=== PATIENT | female | born 1990 | race Hispanic/Latino ===

== ENCOUNTER 2018-02-21 09:20 | Inpatient (IN) | payer OTHER ==
[~2018-02-21] VITALS: Ht 160 cm; Wt 96.6 kg
[2018-02-21] MEDS ORDERED: PRENATAL TABLE1 EAC2 PO (11:35)
[2018-02-21] MEDS ORDERED: DELZICOL400 M1 PO (11:37)
[2018-02-21 11:40] LABS: ABSOLUTE BASOPHIL COUNT 0 /CUMM (0.0-0.2); ABSOLUTE EOSINOPHIL COUNT 0.1 /CUMM (0.0-0.7); ABSOLUTE GRANULOCYTE CT 9.3 /CUMM (1.4-6.5); ABSOLUTE LYMPH COUNT 2.5 /CUMM (1.2-3.4); ABSOLUTE MONOCYTE COUNT 0.6 /CUMM (0.10-0.60); BASOPHIL % 0.3 % (0.0-2.0); EOSINOPHIL % 0.7 % (0-5); GRANULOCYTE % 74.3 % (42.2-75.2); HEMATOCRIT 38.3 % (37-47); MEAN CORPUSCULAR HGB 29.3 PG (27.0-31.0); MEAN CORPUSCULAR HGB CONC 34.2 G/DL (33.0-37.0); MEAN CORPUSCULAR VOLUME 85.5 FL (81.0-99.0); MEAN PLATELET VOLUME 9.2 FL (7.4-10.4); PLATELET COUNT 225 /CUMM (130-400); RBC DISTRIBUTION WIDTH 14.9 % (11.5-14.5); RED BLOOD CELL CT 4.47 /CUMM (4.20-5.40); WHITE BLOOD CELL COUNT 12.5 /CUMM (4.8-10.8)
--- NOTE | 2018-02-21 12:52 | History & Physical ---
General Information and HPI MD Statement: I have seen and personally examined TRUE YOUSSEF and documented this H&P. The patient is a 27 year old female at [] weeks and [] days gestation who presented with a chief complaint of []. Source of Information: patient, old records Exam Limitations: no limitations History of Present Illness: The patient is a 27 year old at 41 weeks and 0 days gestation who presented with a chief complaint of painful ctx. No LOF / vb. +FM. GBS pos. 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 Medical History Blood Transfusion Hx: No Neurological: migraine EENT: NONE Cardiovascular: NONE Respiratory: NONE Gastrointestinal: colitis (UC - on delzicol - GI [facility]) Hepatic: NONE Renal: nephrolithiasis (4 yrs ago lithotripsy) Musculoskeletal: NONE Psychiatric: NONE Endocrine: NONE Blood Disorders: NONE Cancer(s): NONE HOME BUILDER/Reproductive: NONE Surgical History Pertinent Surgical History: T&A Past Family/Social History Psychosocial History Smoking Status: Former Smoker Exam & Diagnostic Data Last 24 Hrs of Vital Signs/I&O Intake & Output 02/21 1600 02/21 0800 02/21 0000 Intake Total Output Total Balance Patient 213 lb Weight Obstetric Exam Wgt Gained During : 36 lb Pelvimetry: adequate Dilation (cm): 4 Effacement (%): 90 Station: -2 Membranes: intact Fluid: unknown Fundal Height (cm): 40 Multiple Gestation? No Contractions: q 5 Infant #1 - FHR Baseline: 130 Category: 1 Estimated Weight: 3800 Presentation: vtx Patient for Induction? No Physical Exam: nad cta rrr abd soft nt gravid ext nt Labs Blood Type & Rh: O pos Antibody Screen: neg Hct/Hgb & Platelets #1: 14.1/ 44, 260 Hct/Hgb & Platelets #2: 11.4/ 37.6, 241 Rubella: imm VDRL #1: neg VDRL #2: neg HbsAg: neg HIV #1: neg HIV #2 neg 1 Hr P Group B Strep: pos Initial Ultrasound: 07/05/17 siup 8wks cwd Anatomy Ultrasound: 10/22/17 [facility] yasmine wnl Ultrasound for EFW: 01/15/18 35+5 32% 5#10 Genetic Testing: NT wnl, msafp wnl Hgb AA CF neg Darius Sachs neg Last 24 Hrs of Labs/Devin: Laboratory Tests 02/21/18 1120: CBC w Diff NO MAN DIFF REQ, RBC 4.47, MCV 85.5, MCH 29.3, MCHC 34.2, RDW 14.9 H , MPV 9.2, Gran % 74.3, Lymphocytes % 19.9 L, Monocytes % 4.8, Eosinophils % 0.7, Basophils % 0.3, Absolute Granulocytes 9.3 H, Absolute Lymphocytes 2.5, Absolute Monocytes 0.6, Absolute Eosinophils 0.1, Absolute Basophils 0, Urine Color YEL, Urine Clarity HAZY H, Urine pH 7.0, Ur Specific Arnold 1.015, Urine Protein NEG, Urine Ketones NEG, Urine Nitrite NEG, Urine Bilirubin NEG, Urine Urobilinogen 0.2, Ur Leukocyte Esterase TRACE H, Ur Microscopic SEDIMENT EXAMINED, Urine RBC RARE, Urine WBC 3-5 H, Ur Epithelial Cells MOD H, Urine Bacteria MOD H, Granular Casts RARE H, Urine Hemoglobin TRACE-INTACT, Urine Glucose NEG Assessment/Plan Assessment/Plan: 27yo 41 wks early labor, GBS pos, intact, and maternal status reassuring -expectant mgmt -PCN GBS proph -monitoring -ANSVD As Ranked By This Provider Problem List: 1. Core Measures Venous Thromboembolism VTE Risk Factors / No Mechanical VTE Prophylaxis d/t Early Ambulation No VTE Pharm Prophylaxis d/t LowRisk-No Interven Req'd Attending MD Review Statement Attending Statement Attending MD Statement: examined this patient, discussed with family, discussed w/nursing
--- NOTE | 2018-02-21 15:26 | PN- OBGYN ---
Surgical Brief Attending Note Brief Attending Note: pt c/o incr ctx, desires analgesia v/ss fht 120s moderate variability +acc no dec toco q 3-5 sve /-2 - AROM clr P0 41 wks protracted labor, GBS pos s/p arom, on pcn, and maternal status reassuring -cont current mgmt -stadol
--- NOTE | 2018-02-21 23:50 | PN- OBGYN ---
Surgical Brief Attending Note Brief Attending Note: pt c/o rectal pressure despite top-off of epidural afeb fht 120s moderate variability +acc occ early dec toco q 2-3 min pit @ 8mu sve fd / +2 w/ caput and molding a/p p0 term protracted active labor on pit, gbs pos on pcn, and maternal status reassuring -begin pushing -ansvd
--- NOTE | 2018-02-22 00:28 | Labor & Delivery Summary ---
Delivery Summary Vaginal Delivery: Vaginal: spontaneous Episiotomy/Lacerations: Episiotomy/Lacerations: 1st deg Type: vaginal Repair: 3-0 kendrick Anesthesia: epidural Placenta: Placenta: spontanteous, normal, 3 vessel Anesthesia: block Cord PH Value: 7.33 Apgars - 1 Min: 9 Apgars - 5 Min: 9 Additional Comments: Pt FD / +2 and pushing w/ epidural. Controlled of live female at 1159p. Head del over intact perineum from [place]. Mouth and nose bulb suctioned. Body del w/o difficulty and placed on mom. Cord clamped and cut. 3vc plac del spont intact. Fundus contracted. 1st deg lac repaired usual fashion 3-0 kendrick. Excellent hemostasis. Pt candido well. EBL 400cc. Baby w/ mom / wbn.
--- NOTE | 2018-02-22 10:49 | PN- OBGYN ---
Surgical Brief Attending Note Brief Attending Note: pt feeling well. delivered just before midnight. amb / void / candido po. pain well controlled w/ motrin. afeb, v/ss nad abd soft nt ff yoli mod lochia ext nt tr b/l le ed a/p ppd 1 s/p , doing well -check cbc tonight -routine pp care
[2018-02-22 18:00] LABS: ABSOLUTE BASOPHIL COUNT 0 /CUMM (0.0-0.2); ABSOLUTE EOSINOPHIL COUNT 0.2 /CUMM (0.0-0.7); ABSOLUTE GRANULOCYTE CT 10.3 /CUMM (1.4-6.5); ABSOLUTE LYMPH COUNT 3.3 /CUMM (1.2-3.4); ABSOLUTE MONOCYTE COUNT 0.8 /CUMM (0.10-0.60); BASOPHIL % 0.2 % (0.0-2.0); EOSINOPHIL % 1.2 % (0-5); GRANULOCYTE % 70.5 % (42.2-75.2); MEAN CORPUSCULAR HGB 29.3 PG (27.0-31.0); MEAN CORPUSCULAR HGB CONC 33.8 G/DL (33.0-37.0); MEAN CORPUSCULAR VOLUME 86.7 FL (81.0-99.0); MEAN PLATELET VOLUME 9.1 FL (7.4-10.4); PLATELET COUNT 184 /CUMM (130-400); RBC DISTRIBUTION WIDTH 15.1 % (11.5-14.5); RED BLOOD CELL CT 3.73 /CUMM (4.20-5.40); WHITE BLOOD CELL COUNT 14.6 /CUMM (4.8-10.8)
[2018-02-22 18:02] LABS: HEMATOCRIT 32.3 % (37-47)
[2018-02-23 07:41] LABS: ABSOLUTE BASOPHIL COUNT 0 /CUMM (0.0-0.2); ABSOLUTE EOSINOPHIL COUNT 0.2 /CUMM (0.0-0.7); ABSOLUTE GRANULOCYTE CT 7.5 /CUMM (1.4-6.5); ABSOLUTE LYMPH COUNT 3.4 /CUMM (1.2-3.4); ABSOLUTE MONOCYTE COUNT 0.6 /CUMM (0.10-0.60); BASOPHIL % 0.4 % (0.0-2.0); EOSINOPHIL % 1.5 % (0-5); HEMATOCRIT 31.7 % (37-47); MEAN CORPUSCULAR HGB 29.4 PG (27.0-31.0); MEAN CORPUSCULAR HGB CONC 33.6 G/DL (33.0-37.0); MEAN CORPUSCULAR VOLUME 87.4 FL (81.0-99.0); MEAN PLATELET VOLUME 9.3 FL (7.4-10.4); PLATELET COUNT 173 /CUMM (130-400); RBC DISTRIBUTION WIDTH 15.5 % (11.5-14.5); RED BLOOD CELL CT 3.63 /CUMM (4.20-5.40); WHITE BLOOD CELL COUNT 11.7 /CUMM (4.8-10.8)
--- NOTE | 2018-02-23 11:09 | PN- OBGYN ---
Surgical Brief Attending Note Brief Attending Note: pt feeling well. amb / void / candido po. +pumping. pain well controlled. afeb, v/ss nad abd soft nt ff yoli min lochia ext nt +1 b/l le ed hct 32 a/p ppd 2 s/p , doing well -d/c home w/ f/u in 2 wks and 6 wks -pp instructions reviewed
== END 2018-02-23 11:54 | DRG 775 ==
LOC: CBCO 09:20 → GNO 10:56
PROVIDERS: Obstetrics & Gynecology
PROC: 0HQ9XZZ Repair Perineum Skin, External Approach (ICD-10-PCS; principal; 2018-02-21)
PROC: 10E0XZZ Delivery of Products of Conception, External Approach (ICD-10-PCS; principal; 2018-02-21)
DX: O48.0 Post-term pregnancy (principal); K51.90 Ulcerative colitis, unspecified, without complications; O70.0 First degree perineal laceration during delivery; O76 Abnormality in fetal heart rate and rhythm complicating labor and delivery; Z3A.41 41 weeks gestation of pregnancy; O99.62 Diseases of the digestive system complicating childbirth; Z37.0 Single live birth; O99.824 Streptococcus B carrier state complicating childbirth; Z91.013 Allergy to seafood
CPT/HCPCS: GNOP; GNOS; 36415; 81001; 87086; J0595; J7120